=== PATIENT | female | born 1965 | race Caucasian/White ===

== ENCOUNTER 2017-07-07 11:16 | Day surgery (SDC) | payer BC, OTHER ==
[~2017-07-07] VITALS: Ht 152.4 cm; Wt 52.9 kg
[2017-07-07] MEDS ORDERED: NO MEDS (12:11)
[2017-07-07 12:17] VITALS: Ht 152.4 cm; Wt 52.9 kg
[2017-07-07 13:39] VITALS: BP 142/63; PULSE 54; RESP 16
--- NOTE | 2017-07-07 15:13 | OPR ---
Date/Time of Note Date/Time of Note DATE: 07/07/17 TIME: 15:10 Operative Report Preoperative Diagnosis Dyspepsia Postoperative Diagnosis Impression: * 5 mm antral gastric ulceration, no stigmata, benign endoscopic appearance. * Rule out H. pylori. Biopsies obtained Plan: * Omeprazole 40 mg daily * Review pathology as soon as available * Follow-up EGD in 8 weeks * Follow-up in the office as previously scheduled . Operation/Procedure Performed EGD plus biopsies Surgeon: ANGELICA FORD MD Anesthesia Type: MAC Estimated Blood Loss: none Specimens Gastric antrum and body Grafts/Implants: none Complications: no ANGELICA FORD MD Jul 07, 2017 15:13
--- NOTE | 2017-07-07 15:17 | OPR ---
Date/Time of Note Date/Time of Note DATE: 07/07/17 TIME: 15:14 Operative Report Preoperative Diagnosis Colorectal cancer screening Postoperative Diagnosis Impression: * 6 mm polyp mid ascending colon. Snared and retrieved * 3 mm polyp mid descending colon. Ablated with biopsy forceps * 3 mm polyp rectum. Ablated with biopsy forceps * Mild left-sided diverticulosis * Moderate-sized internal hemorrhoids Plan: * Review pathology as soon as available * Follow-up in the office as scheduled * Annual Hemoccult stool testing * Surveillance colonoscopy in 5 years unless clinically indicated otherwise . Operation/Procedure Performed Colonoscopy with polyp ablation Colonoscopy with snare polypectomy Surgeon: ANGELICA FORD MD Anesthesia Type: MAC Estimated Blood Loss: none Specimens * 6 mm polyp mid ascending colon. Snared and retrieved * 3 mm polyp mid descending colon. Ablated with biopsy forceps * 3 mm polyp rectum. Ablated with biopsy forceps Complications: no ANGELICA FORD MD Jul 07, 2017 15:17
[2017-07-07 15:47] VITALS: BP 135/70; PULSE 54; RESP 16
--- NOTE | 2017-07-07 16:22 | GILP ---
DATE OF PROCEDURE: 07/07/2017 PROCEDURE PERFORMED: Colonoscopy with polyp ablation x2. Procedure with snare polypectomy. PREMEDICATION: Monitored anesthesia care by anesthesiologist. INSTRUMENT USED: Olympus colonoscope. PREPARATION: Adequate. TECHNIQUE: After informed consent, with the patient/relatives understanding the procedure, its indications potential risks and complications, including but not limited to: allergic reaction, bleeding, perforation, infection, missed lesions and after all pertinent questions were answered to the patient's satisfaction, the patient/relatives signed the witnessed informed consent. Following this, premedication was administered slowly IV push by under careful cardiovascular and respiratory monitoring with pulse oximetry, automatic blood pressure and biomedical engineering aide. Once the sedative effect was achieved, the patient was placed in the left lateral decubitus position, digital rectal examination was performed. The colonoscope was then introduced and advanced under visual control throughout all segments of the colon including: the rectum, sigmoid, descending colon, splenic flexure, transverse colon, hepatic flexure, ascending colon and finally reaching the cecum which was clearly identified by transillumination, finger indentation and the ileocecal valve. Careful examination of the mucosa of the lower gastrointestinal tract both on insertion as well as withdrawal of the instrument disclosed the following findings: RECTAL EXAMINATION: No evidence of perirectal disease, no masses. COLONIC MUCOSA: (Normal) The colonic mucosa was remarkable for the presence of a 6-mm polyp in the mid ascending colon which was snared and retrieved. A 3-mm polyp was noted in the mid ascending colon as well which was ablated with biopsy forceps. There was moderate diverticulosis on the left side of the colon. A 3-mm polyp was noted on withdrawal of the instrument in the area of the rectum. Polyp was ablated with biopsy forceps. Mild left-sided diverticulosis was present. The remainder of the colonic mucosa was unremarkable. Moderate-sized internal hemorrhoids are present. The instrument was then withdrawn, the patient tolerated the procedure well and was transferred out of the Endoscopy Suite awake and in good condition to continue recovery under observation. IMPRESSION: 1. A 6-mm polyp mid ascending colon, snared and retrieved. 2. A 3-mm polyp mid ascending colon, ablated with biopsy forceps. 3. A 3-mm polyp in the rectum, ablated with biopsy forceps. 4. Mild left-sided diverticulosis. 5. Moderate-sized internal hemorrhoids. RECOMMENDATIONS: The patient will be followed up as an outpatient. Annual Hemoccult testing is recommended. Surveillance colonoscopy in five years is recommended as well. Dictated By: Michoacano Aguirre MD /beatris/lee /Document#: [id number]
--- NOTE | 2017-07-08 07:59 | GILP ---
DATE OF PROCEDURE: 07/07/2017 PROCEDURE PERFORMED: Esophagogastroduodenoscopy with biopsies. BRIEF HISTORY AND INDICATIONS: The patient is being evaluated for dyspepsia. PREMEDICATION: Monitored anesthesia care by anesthesiologist. PROCEDURE PERFORMED: Upper endoscopy. INSTRUMENT USED: . TECHNIQUE: After informed consent, with the patient/relatives understanding the procedure, its indications, potential risks and complications, including but not limited to: allergic reaction, bleeding, perforation or infection, and after all pertinent questions were answered to the patients satisfaction, the patient/relatives signed witnessed informed consent. Following this, premedication was administered slowly IV push under careful cardiovascular and respiratory monitoring with pulse oximetry, automatic blood pressure and cardiac monitor technician. Once the sedative effect was achieved the patient was place in the left lateral decubitus, the panendoscope was introduced and advanced under visual control. Careful examination of the upper gastrointestinal tract, both on insertion as well as withdrawal of the instrument disclosed the following findings: ESOPHAGUS: The distal esophagus shows mild erythema of the mucosa. STOMACH: Upon entrance to the stomach air was insufflated, the gastric jean-baptiste distended normally. There was a -mm antral gastric ulceration with no stigmata of recent bleeding and benign endoscopic appearance. Biopsies were obtained to rule out H. pylori infection. PYLORUS: The pylorus appears patent and within normal limits, with no evidence of gastric outlet obstruction. DUODENUM: The duodenal mucosa was carefully examined in the duodenal bulb as well as the second portion of the duodenum and appears unremarkable with no evidence of duodenitis, ulcer or neoplasm. The instrument was then withdrawn, the patient tolerated the procedure well and was transfer out of the endoscopy suite awake, and in good condition to continue recovery under observation. IMPRESSION: 1. A -mm antral gastric ulceration. No stigmata. Benign endoscopic appearance. 2. Rule out H. pylori infection. Biopsies obtained. 3. Mild distal esophagitis. RECOMMENDATIONS: The patient will be treated with omeprazole 40 mg daily. Further recommendations will depend on her clinical course as well as review of biopsies. Follow-up endoscopy in eight weeks is recommended to assess healing of gastric ulceration. Dictated By: Michoacano Aguirre MD /beatris/lee /Document#: [id number] ; Fax to [phone]
== END 2017-07-07 17:18 | disposition home or self-care (01) ==
LOC: GIL 11:16
PROVIDERS: ATTEND Internal Medicine Gastroenterology
DX: Z12.11 Encounter for screening for malignant neoplasm of colon (principal); D12.2 Benign neoplasm of ascending colon; K57.30 Diverticulosis of large intestine without perforation or abscess without bleeding; K64.8 Other hemorrhoids; K62.1 Rectal polyp; K25.9 Gastric ulcer, unspecified as acute or chronic, without hemorrhage or perforation; K20.9 Esophagitis, unspecified
CPT/HCPCS: 43239; 45380; 45385; 88305; Z7610